=== PATIENT | female | born 1965 | race African-American/Black ===

== ENCOUNTER 2019-02-23 15:05 | Emergency (ER) | payer OTHER ==
[~2019-02-23] VITALS: Wt 80.0 kg
[~2019-02-23 15:05] MED LIST: METH500T PO; OXYC-279 PO; PHEN100C PO; SERT100T PO
[2019-02-23] MEDS ORDERED: SOD CHLORIDE 0.9% 1,000 ML IV STA (15:36)
[2019-02-23] MEDS ORDERED: DIPHENHYDRAMINE 50 MG INJ IV STA (15:36)
[2019-02-23] MEDS ORDERED: PROCHLORPERAZINE 10 MG INJ IV STA (15:36)
[2019-02-23] MEDS ORDERED: HYDROCODONE/APAP (10/325) TAB PO ONE (16:00)
[2019-02-23] MEDS ORDERED: IBUPROFEN 200 MG TAB PO ONE (18:00)
[2019-02-23 18:32] VITALS: BP 127/72; PULSE 78; RESP 16
== END 2019-02-23 18:33 | disposition home or self-care (01) ==
LOC: E/R 15:05
DX: G40.909 Epilepsy, unspecified, not intractable, without status epilepticus (principal); G89.29 Other chronic pain; I10 Essential (primary) hypertension; J45.909 Unspecified asthma, uncomplicated; F17.210 Nicotine dependence, cigarettes, uncomplicated; R40.2142 Coma scale, eyes open, spontaneous, at arrival to emergency department; R40.2362 Coma scale, best motor response, obeys commands, at arrival to emergency department; R40.2252 Coma scale, best verbal response, oriented, at arrival to emergency department; Z76.5 Malingerer [conscious simulation]
CPT/HCPCS: 36415; 70450; 80048; 80185; 85025; 96374; 96375; J0780; J1200; J7030; Z7502; Z7610